=== PATIENT | female | born 1950 | race Caucasian/White ===

== ENCOUNTER 2017-11-03 18:03 | Emergency (ER) | payer OTHER, SELFPAY ==
[2017-11-03 18:23] VITALS: BP 159/75; PULSE 83; RESP 16; TEMP 36.9; O2SAT 98; BMI 28.2
--- NOTE | 2017-11-03 18:46 | ED.FALL ---
HPI - Fall <Garima Guerrero PA-C - Last Filed: 11/03/17 21:49> General Chief Complaint: Fall Stated Complaint: FELL ON BACKSIDE Time Seen by Provider: 11/03/17 18:10 Source: patient and family Mode of arrival: wheelchair Limitations: no limitations History of Present Illness HPI Narrative: This 66-year-old female was sitting in a hanging chair that fell down, and she fell onto her bottom. She states that she felt like she fell flat onto her tailbone or ???ischial tuberosity??? area. She denies any other injury such as head contusion or LOC. Her saw this today and states that her bottom was probably not more than 20 in off the ground. She fell onto a thin rub on a hardwood floor. She states that it was difficult for her to get up and she needed help. She states that she felt a lot of pain in the left gluteal area and this also radiated into the leg though she is not sure where or how far, but she had difficulty bearing weight due to the pain. She states this has improved a little bit since she initially got up. She denies any paresthesia or weakness in the legs. She states that she has been urinating normally. She states now she can feel some pain in the hip as well. She was recently diagnosed with osteopenia. Related Data Previous Rx's Medication Instructions Recorded rosuvastatin [Crestor] 10 mg PO QPM #30 tab 07/02/16 albuterol sulfate [Proventil HFA] 2 puff INH Q4-6HP PRN #1 inh 04/17/17 metoprolol succinate 50 mg PO QDAY #90 ter 04/17/17 pneumoc 13-nick conj-dip cr(PF) 0.5 ml IM X1 #1 ea 04/17/17 [Prevnar 13 (PF)] omeprazole 40 mg PO QDAYP PRN #90 cap 08/16/17 Allergies Allergy/AdvReac Type Severity Reaction Status Date / Time doxycycline [DOXYCYCLINE] Allergy Severe SWOLLEN LIP Verified 11/03/17 18:33 amoxicillin Allergy Unknown Verified 11/03/17 18:33 adhesive [ADHESIVE] AdvReac Mild BLISTERS Verified 11/03/17 18:33 Review of Systems <Garima Guerrero PA-C - Last Filed: 11/03/17 21:49> Review of Systems All systems reviewed & are unremarkable except as noted in HPI and below Exam <SCOTTIE Montoya Last Filed: 11/03/17 21:49> Narrative Exam Narrative: GENERAL APPEARANCE: Patient sitting comfortably, in no distress. PULMONARY: Lungs clear to auscultation bilaterally CV: Regular rhythm regular without murmur, normal S1 and S2, no S3 or S4 MUSCULOSKELETAL: No point tenderness over the lumbar spine or sacral spine. She points to the SI area on the left as pain source but no tenderness to palpation. She is slow to move from sit to stand but has normal trunk flexion. Lower extremity strength 5/5 bilateral hip flexors, knee extensors, foot plantar flexion. Negative modified straight leg raise bilaterally. She is able to ambulate a few steps bearing full weight with a cane for support NEUROLOGIC: Bilateral patellar and Achilles DTRs 2+ Initial Vital Signs Initial Vital Signs: Vital Signs Temperature 98.4 F 11/03/17 18:23 Pulse Rate 83 11/03/17 18:23 Respiratory Rate 16 11/03/17 18:23 Blood Pressure 159/75 H 11/03/17 18:23 Pulse Oximetry 98 11/03/17 18:23 <DO Phyllis Mercado Last Filed: 11/04/17 02:55> Initial Vital Signs Initial Vital Signs: Vital Signs Temperature 98.4 F 11/03/17 18:23 Pulse Rate 83 11/03/17 18:23 Respiratory Rate 16 11/03/17 18:23 Blood Pressure 159/75 H 11/03/17 18:23 Pulse Oximetry 98 11/03/17 18:23 Course <SCOTTIE Montoya Last Filed: 11/03/17 21:49> Orders Ordered: ED Orders 11/03/17 19:07 XR hip w pel if done LT 2V Stat XR lumbar spine 2-3V Stat Discontinued Medications Ibuprofen (Advil) 400 mg PO NOW ONE Stop: 11/03/17 19:08 Last Admin: 11/03/17 19:28 Dose: 400 mg Vital Signs - 8 hr 11/03/17 19:58 Pulse Rate 72 Respiratory Rate 15 Blood Pressure [Right Arm] 157/91 H Pulse Oximetry 98 <DO Phyllis Mercado Last Filed: 11/04/17 02:55> Orders Ordered: ED Orders 11/03/17 19:07 XR hip w pel if done LT 2V Stat XR lumbar spine 2-3V Stat Discontinued Medications Ibuprofen (Advil) 400 mg PO NOW ONE Stop: 11/03/17 19:08 Last Admin: 11/03/17 19:28 Dose: 400 mg Vital Signs - 8 hr 11/03/17 19:58 Pulse Rate 72 Respiratory Rate 15 Blood Pressure [Right Arm] 157/91 H Pulse Oximetry 98 MDM - Fall <Garima Guerrero PA-C - Last Filed: 11/03/17 21:49> Imaging Data Xrays hip, lumbar: Radiologist's impression: [address] [address] XRay Report Addendum Patient: Alma Whitfield MR#: [id number] : 1950 Acct:[id number] Age/Sex: 66 / F Date of Service: 11/03/17 Loc: ED Accession Number: [id number] Procedure: XR hip w pel if done LT 2V Ordering Provider: Garima Guerrero P.A-C ADDENDUM This report includes an Addendum and supersedes previous reports for this exam. PROCEDURE: XR HIP W PEL IF DONE LT 2V INDICATIONS: fall onto coccyx, L. hip and LE pain TECHNIQUE: AP pelvis with lateral view(s) of the left hip(s). COMPARISON: None. FINDINGS: Bones: No fractures or dislocations. Pelvic ring appears intact. No suspicious bony lesions. Soft tissues: The visualized bowel gas pattern is normal. No suspicious soft tissue calcifications. IMPRESSION: Mild symmetric hip joint osteoarthritis, no trauma found. Dictated by: Chuck Kruse M.D. on 11/03/2017 at 19:29 Approved by: Chuck Kruse M.D. on 11/03/2017 at 19:30 ADDENDUM: There is mild to moderate calcific bursitis appears present above the greater trochanteric tip on the left. This was not present on prior CT abdomen/pelvis from 2009. Dictated by: Chuck Kruse M.D. on 11/03/2017 at 19:37 Approved by: Chuck Kruse M.D. on 11/03/2017 at 19:42 Addendum Dictated By: Chuck Kruse M.D. Addendum Signed By: Addendum Cosigned By: DD/ TD/TT: 11/03/17 PROCEDURE: XR HIP W PEL IF DONE LT 2V INDICATIONS: fall onto coccyx, L. hip and LE pain TECHNIQUE: AP pelvis with lateral view(s) of the left hip(s). COMPARISON: None. FINDINGS: Bones: No fractures or dislocations. Pelvic ring appears intact. No suspicious bony lesions. Soft tissues: The visualized bowel gas pattern is normal. No suspicious soft tissue calcifications. IMPRESSION: Mild symmetric hip joint osteoarthritis, no trauma found. Dictated by: Chuck Kruse M.D. on 11/03/2017 at 19:29 Approved by: Chuck Kruse M.D. on 11/03/2017 at 19:30 View Report History Print [address] [address] XRay Report Signed Patient: Alma Whitfield MR#: [id number] : 1950 Acct:[id number] Age/Sex: 66 / F Date of Service: 11/03/17 Loc: ED Accession Number: [id number] Procedure: XR lumbar spine 2-3V Ordering Provider: Garima Guerrero P.A-C PROCEDURE: XR LUMBAR SPINE 2-3V INDICATIONS: fall, pain TECHNIQUE: 3 views of the lumbar spine were acquired. COMPARISON: [facility], CT, ABDOMEN/PELVIS WITH CONTRAST, 07/09/2009, 8:29. [facility], CR, XR HIP W PEL IF DONE LT 2V, 11/03/2017, 18:50. FINDINGS: Bones: 5 ulj-ojw-hoqstnf vertebrae are present. There is normal bony alignment. No vertebral body compression fractures. No suspicious bony lesions. Moderately severe mid and lower lumbosacral degenerative disc disease and facet osteoarthritis is present but without trauma. Soft tissues: Overlying bowel gas pattern is normal. No suspicious soft tissue calcifications. IMPRESSION: Moderately severe lumbosacral degenerative disc disease and facet osteoarthritis without trauma found. Dictated by: Chuck Kruse M.D. on 11/03/2017 at 19:30 Approved by: Chuck Kruse M.D. on 11/03/2017 at 19:36 Discharge Plan Departure Patient Disposition: Home, Self-Care Clinical Impression: Contusion of lower back and pelvis, initial encounter Discharge Date/Time: 11/03/17 20:12 Interventions: ED Discharge Assessment Last Done: 11/03/17 20:11 Instructions: DI for Low Back Pain Activity Restrictions/Additional Instructions: Use ice and heat and continue your topical medicines as needed. You may want to continue 400 mg of ibuprofen every 8 hr for the next couple of days or 1 Aleve every 12 hr. Aann-nus-aohkxnk lidocaine patches may also be helpful. Return as we talked about if any acutely worsening symptoms, otherwise you can walk hand start resuming gentle activity as you tolerate. You should plan to follow up with your PCP in about a week to reassess and see whether you might need further treatment such as physical therapy Prescriptions: No Action rosuvastatin [Crestor] 10 MG tablet 10 mg PO QPM Qty: 30 RF: 12 pneumoc 13-nick conj-dip cr(PF) [Prevnar 13 (PF)] 0.5 ML syringe 0.5 ml IM X1 Qty: 1 RF: 0 metoprolol succinate 50 MG tablet extended release 24 hr 50 mg PO QDAY Qty: 90 RF: 3 albuterol sulfate [Proventil HFA] 90 MCG/PUFF HFA aerosol inhaler 2 puff INH Q4-6HP PRNQty: 1 RF: 3 omeprazole 40 MG capsule,delayed release(DR/EC) 40 mg PO QDAYP PRNQty: 90 RF: 0 Referrals: Aundrea Villegas PA-C [Primary Care Provider] - <Karan Norton DO - Last Filed: 11/04/17 02:55> Cosign ED Attending Mp Attestation: I was immediately available in the department for consultation. Documentation has been reviewed. I agree with assessment and plan.
--- NOTE | 2017-11-03 19:07 | DI.RAD.S_ITS ---
PROCEDURE: XR HIP W PEL IF DONE LT 2V INDICATIONS: fall onto coccyx, L. hip and LE pain TECHNIQUE: AP pelvis with lateral view(s) of the left hip(s). COMPARISON: None. FINDINGS: Bones: No fractures or dislocations. Pelvic ring appears intact. No suspicious bony lesions. Soft tissues: The visualized bowel gas pattern is normal. No suspicious soft tissue calcifications. IMPRESSION: Mild symmetric hip joint osteoarthritis, no trauma found. Dictated by: Chuck Kruse M.D. on 11/03/2017 at 19:29 Approved by: Chuck Kruse M.D. on 11/03/2017 at 19:30
--- NOTE | 2017-11-03 19:07 | DI.RAD.S_ITS ---
PROCEDURE: XR LUMBAR SPINE 2-3V INDICATIONS: fall, pain TECHNIQUE: 3 views of the lumbar spine were acquired. COMPARISON: [facility], CT, ABDOMEN/PELVIS WITH CONTRAST, 07/09/2009, 8:29. [facility], CR, XR HIP W PEL IF DONE LT 2V, 11/03/2017, 18:50. FINDINGS: Bones: 5 usp-fac-kzjibhx vertebrae are present. There is normal bony alignment. No vertebral body compression fractures. No suspicious bony lesions. Moderately severe mid and lower lumbosacral degenerative disc disease and facet osteoarthritis is present but without trauma. Soft tissues: Overlying bowel gas pattern is normal. No suspicious soft tissue calcifications. IMPRESSION: Moderately severe lumbosacral degenerative disc disease and facet osteoarthritis without trauma found. Dictated by: Chuck Kruse M.D. on 11/03/2017 at 19:30 Approved by: Chuck Kruse M.D. on 11/03/2017 at 19:36
[2017-11-03] MEDS: IBUPROFEN 400 MG TABLET PO (19:28)
[2017-11-03 19:58] VITALS: BP 157/91; PULSE 72; RESP 15; O2SAT 98
== END 2017-11-03 20:12 | disposition home or self-care (01) ==
PROVIDERS: Emergency Provider Internal Medicine; Family Provider Physician Assistant; PCP Physician Assistant
DX: S30.0XXA Contusion of lower back and pelvis, initial encounter (principal); W19.XXXA Unspecified fall, initial encounter
CPT/HCPCS: 72100; 73502; 99283

== ENCOUNTER → 2018-03-11 09:06 | Outpatient (CLI) | payer OTHER, SELFPAY ==
--- NOTE | 2018-03-11 09:44 | DI.CT.S_ITS ---
PROCEDURE: CT CHEST WO CON INDICATIONS: History of adenocarcinoma of lung w/wedge resection x 2. Prior synchronous right upper lobe and right lower lobe VATS wedge lung resections were performed in September of 2014. Several stable 3-4 mm lung nodules have been previously documented. TECHNIQUE: Noncontrast 5 mm thick sections acquired from the pulmonary apices to the posterior costophrenic angles. 7 mm thick coronal and sagittal MIP reformats were then acquired. For radiation dose reduction, the following was used: automated exposure control, adjustment of mA and/or kV according to patient size. COMPARISON: Outside Facility, RG, CT THORAX W/O CONTRAST, 04/25/2017, 11:25. FINDINGS: Image quality: Excellent. Lungs and pleura: No acute air space opacities are present, and the areas of previously present sub-solid and small solid nodules identified within the upper lobes bilaterally are stable over time. These are seen on series 3, image 16 at the right upper lobe where a sub-solid radiodensity measures 4 mm as was previously the case and more superiorly on the left a sub-solid radiodensity could be seen on image 9 also stable over time. Finally, the previously reported solid nodule at the lateral left lung apex is much less well-visualized, and may be partially visualized on image 8, laterally, and smaller than on the prior outside CT from April 2017. There is expected postsurgical change of the VATS procedure lateral right lower lobe and medial left lung apex. No pleural effusions or pneumothorax. Central and peripheral airways are patent and normal in caliber. Mediastinum: Heart size is normal. No pericardial effusion. No mediastinal adenopathy by size criteria. Thoracic aorta and central pulmonary arteries are normal in size. Esophagus is normal in caliber. No hiatal hernia. Bones and chest wall: No suspicious bony lesions. No vertebral body compression fractures. No axillary or supraclavicular adenopathy by size criteria. Thyroid gland appears normal where well visualized. Abdomen: Visualized upper abdominal solid organs and bowel loops appear normal in the absence of contrast. IMPRESSION: 3 separate foci of both sub-solid and previously reported solid radiodensities at the upper lobes bilaterally identified during chest CT scanning at [facility] are stable over time or have diminished in conspicuity. Expected postsurgical change of prior VATS procedure right upper lobe near the apex and right lung base involving the lower lobe postero-laterally appear stable over time. No new pulmonary nodule has developed, no adenopathy or distant metastatic disease is found. Dictated by: Chuck Kruse M.D. on 03/11/2018 at 11:15 Approved by: Chuck Kruse M.D. on 03/11/2018 at 11:44
== END ==
PROVIDERS: Family Provider Physician Assistant; PCP Physician Assistant; Visit Provider Physician Assistant
DX: R91.8 Other nonspecific abnormal finding of lung field (principal); Z85.118 Personal history of other malignant neoplasm of bronchus and lung
CPT/HCPCS: 71250

== ENCOUNTER → 2018-04-08 07:30 | Outpatient (CLI) | payer OTHER, SELFPAY ==
[2018-04-08 08:34] LABS: Alanine Aminotransferase 48 IU/L (9-52); Albumin 4.2 g/dL (3.5-5.0); Albumin Globulin Ratio 1.6 (1.0-2.8); Alkaline Phosphatase 52 U/L (38-126); Aspartate Aminotransferase 28 IU/L (14-36); BUN Creatinine Ratio 22.2 (6-22); Bilirubin Total 1.3 mg/dL (0.2-1.3); Blood Urea Nitrogen 20 mg/dL (7-17); Calcium 9.1 mg/dL (8.4-10.2); Carbon Dioxide 27 mmol/L (22-32); Chloride 105 mmol/L (98-107); Cholesterol 239 mg/dL (140-199); Estimated Glomerular Filt Rate > 60.0 mL/min (>60); Globulin 2.6 g/dL (1.7-4.1); Glucose 88 mg/dL (80-110); HDL Cholesterol 52 mg/dL (40-60); HEMOLYSIS < 15 (0-50); LDL Cholesterol Calculated 161 mg/dL (<100); Potassium 4.7 mmol/L (3.4-5.1); Sodium 144 mmol/L (137-145); Total Protein 6.8 g/dL (6.3-8.2); Triglycerides 129 mg/dL (35-150)
[2018-04-08 08:45] LABS: Microalbumi Creatinin Ratio Ur 5.6 ug/mg CR (<30); Microalbumin Urine Random < 0.6 mg/dL (0-1.6)
== END ==
PROVIDERS: PCP Physician Assistant; Visit Provider Physician Assistant
DX: E78.2 Mixed hyperlipidemia (principal); I10 Essential (primary) hypertension
CPT/HCPCS: 36415; 80053; 80061; 82043; 82570

== ENCOUNTER → 2018-04-24 11:05 | Outpatient (CLI) | payer OTHER, SELFPAY ==
--- NOTE | 2018-04-24 11:06 | DI.MG.S_ITS ---
BILATERAL DIGITAL SCREENING MAMMOGRAM 3D/2D WITH CAD: 04/24/2018 CLINICAL: Routine screening. Comparison is made to exams dated: 02/15/2016 mammogram, 07/14/2009 mammogram, and 05/03/2008 mammogram - [facility]. The tissue of both breasts is predominantly fatty. Current study was also evaluated with a Computer Aided Detection (CAD) system. No significant masses, calcifications, or other findings are seen in either breast. There has been no significant interval change. IMPRESSION: NEGATIVE There is no mammographic evidence of malignancy. A 1 year screening mammogram is recommended. This exam was interpreted at Station ID: [id number]. NOTE: For mammograms, a report in lay terms will be sent to the patient. Approximately 15% of breast malignancies will not be visualized mammographically. In the management of a palpable breast mass, a negative mammogram must not discourage biopsy of a clinically suspicious lesion. Electronically Signed By: [place] ahuja/heidi:04/24/2018 16:20:54 letter sent: Normal Exam ACR BI-RADS Category 1: Negative [id number]
== END ==
PROVIDERS: Family Provider Physician Assistant; PCP Physician Assistant; Visit Provider Physician Assistant
DX: Z12.31 Encounter for screening mammogram for malignant neoplasm of breast (principal)
CPT/HCPCS: 77063; 77067

== ENCOUNTER → 2019-04-21 07:57 | Outpatient (CLI) | payer OTHER, SELFPAY ==
[2019-04-21 08:38] LABS: Alanine Aminotransferase 32 IU/L (<35); Albumin 4.4 g/dL (3.5-5.0); Albumin Globulin Ratio 1.6 (1.0-2.8); Alkaline Phosphatase 58 U/L (38-126); Aspartate Aminotransferase 27 IU/L (14-36); Bilirubin Total 1.3 mg/dL (0.2-1.3); Blood Urea Nitrogen 20 mg/dL (7-17); Calcium 9.9 mg/dL (8.4-10.2); Carbon Dioxide 24 mmol/L (22-32); Chloride 105 mmol/L (98-107); Cholesterol 249 mg/dL (140-199); Estimated Glomerular Filt Rate > 60.0 mL/min (>60); Globulin 2.7 g/dL (1.7-4.1); Glucose 108 mg/dL (80-110); HDL Cholesterol 48 mg/dL (40-60); HEMOLYSIS < 15 (0-50); LDL Cholesterol Calculated 159 mg/dL (<100); Potassium 4.5 mmol/L (3.4-5.1); Sodium 140 mmol/L (137-145); Total Protein 7.1 g/dL (6.3-8.2); Triglycerides 209 mg/dL (35-150)
[2019-04-21 09:28] LABS: Creatinine Urine Random 66.4 mg/dL
[2019-04-21 09:32] LABS: Microalbumin Urine Random < 0.6 mg/dL (0-1.6)
== END ==
PROVIDERS: PCP Physician Assistant; Visit Provider Physician Assistant
DX: E78.2 Mixed hyperlipidemia (principal); I10 Essential (primary) hypertension
CPT/HCPCS: 36415; 80053; 80061; 82043; 82570

== ENCOUNTER → 2019-11-19 09:09 | Outpatient (CLI) | payer OTHER, SELFPAY ==
[2019-11-20 19:56] LABS: COVID19 Sendout Not Detected (Not Detect)
== END ==
PROVIDERS: PCP Physician Assistant; Visit Provider Registered Nurse
DX: Z01.812 Encounter for preprocedural laboratory examination (principal)
CPT/HCPCS: 87635

== ENCOUNTER → 2020-08-15 08:11 | Outpatient (CLI) | payer OTHER, SELFPAY ==
[2020-08-15 08:58] LABS: Alanine Aminotransferase 48 IU/L (<35); Albumin 4.2 g/dL (3.5-5.0); Albumin Globulin Ratio 1.4 (1.0-2.8); Alkaline Phosphatase 51 U/L (38-126); Aspartate Aminotransferase 32 IU/L (14-36); BUN Creatinine Ratio 24.5 (6-22); Blood Urea Nitrogen 23 mg/dL (7-17); Calcium 9.3 mg/dL (8.4-10.2); Carbon Dioxide 29 mmol/L (22-32); Chloride 107 mmol/L (98-107); Cholesterol 256 mg/dL (140-199); Estimated Glomerular Filt Rate 59.2 mL/min (>60); Globulin 3.1 g/dL (1.7-4.1); Glucose 113 mg/dL (80-110); HDL Cholesterol 46 mg/dL (40-60); HEMOLYSIS < 15 (0-50); Hemoglobin A1C% w Est Avg Glu 5.7 % (4.0-6.0); LDL Cholesterol Calculated 170 mg/dL (<100); Potassium 4.2 mmol/L (3.4-5.1); Sodium 139 mmol/L (137-145); Total Protein 7.3 g/dL (6.3-8.2); Triglycerides 201 mg/dL (35-150)
[2020-08-15 09:23] LABS: Free T3, Triiodothyronine Free 3.44 pg/mL (2.77-5.27); Free T4, Direct Thyroxine 1.27 ng/dL (0.78-2.19)
[2020-08-15 09:37] LABS: Thyroid Stimulating Hormone 1.12 uIU/mL (0.47-4.68)
[2020-08-15 11:02] LABS: Creatinine Urine Random 124.2 mg/dL
[2020-08-15 11:03] LABS: Microalbumi Creatinin Ratio Ur 6.4 ug/mg CR (<30); Microalbumin Urine Random 0.8 mg/dL (0-1.6)
[2020-08-16 16:40] LABS: Hep C Virus Ab w/Reflex Quant NEGATIVE s/c (NEGATIVE)
[2020-08-16 18:51] LABS: Fecal Immunochemical Test Negative (Negative)
== END ==
PROVIDERS: PCP Nurse Practitioner; Referring Provider Nurse Practitioner; Visit Provider Nurse Practitioner
DX: E78.2 Mixed hyperlipidemia (principal); Z79.899 Other long term (current) drug therapy; I10 Essential (primary) hypertension; Z11.59 Encounter for screening for other viral diseases; Z91.89 Other specified personal risk factors, not elsewhere classified; Z12.11 Encounter for screening for malignant neoplasm of colon
CPT/HCPCS: 36415; 80053; 80061; 82043; 82274; 82570; 83036; 84439; 84443; 84481; 86803

== ENCOUNTER → 2020-12-14 07:29 | Outpatient (CLI) | payer OTHER, SELFPAY ==
[2020-12-14 08:44] LABS: Hemoglobin A1C% w Est Avg Glu 5.8 % (4.0-6.0)
[2020-12-14 08:56] LABS: Alanine Aminotransferase 43 IU/L (<35); Albumin Globulin Ratio 1.4 (1.0-2.8); Alkaline Phosphatase 55 U/L (38-126); Aspartate Aminotransferase 31 IU/L (14-36); BUN Creatinine Ratio 22.4 (6-22); Blood Urea Nitrogen 17 mg/dL (7-17); Calcium 9.6 mg/dL (8.4-10.2); Carbon Dioxide 26 mmol/L (22-32); Chloride 108 mmol/L (98-107); Cholesterol 204 mg/dL (140-199); Estimated Glomerular Filt Rate > 60.0 mL/min (>60); Globulin 2.9 g/dL (1.7-4.1); Glucose 109 mg/dL (80-110); HDL Cholesterol 44 mg/dL (40-60); HEMOLYSIS < 15 (0-50); LDL Cholesterol Calculated 118 mg/dL (<100); Potassium 4.5 mmol/L (3.4-5.1); Sodium 140 mmol/L (137-145); Total Protein 6.9 g/dL (6.3-8.2); Triglycerides 209 mg/dL (35-150)
== END ==
PROVIDERS: PCP Nurse Practitioner; Referring Provider Nurse Practitioner; Visit Provider Nurse Practitioner
DX: E78.2 Mixed hyperlipidemia (principal); R73.01 Impaired fasting glucose; Z78.9 Other specified health status; Z79.899 Other long term (current) drug therapy
CPT/HCPCS: 36415; 80053; 80061; 83036

== ENCOUNTER → 2021-06-27 08:25 | Outpatient (CLI) | payer OTHER, SELFPAY ==
[2021-06-27 11:14] LABS: Alanine Aminotransferase 59 IU/L (<35); Albumin 4.1 g/dL (3.5-5.0); Albumin Globulin Ratio 1.5 (1.0-2.8); Alkaline Phosphatase 52 U/L (38-126); Aspartate Aminotransferase 37 IU/L (14-36); BUN Creatinine Ratio 19.8 (6-22); Bilirubin Total 1.1 mg/dL (0.2-1.3); Blood Urea Nitrogen 18 mg/dL (7-17); Calcium 9.8 mg/dL (8.4-10.2); Carbon Dioxide 27 mmol/L (22-32); Chloride 107 mmol/L (98-107); Cholesterol 212 mg/dL (140-199); Estimated Glomerular Filt Rate > 60.0 mL/min (>60); Globulin 2.7 g/dL (1.7-4.1); Glucose 105 mg/dL (80-110); HDL Cholesterol 58 mg/dL (40-60); HEMOLYSIS < 15 (0-50); LDL Cholesterol Calculated 130 mg/dL (<100); Potassium 4.7 mmol/L (3.4-5.1); Sodium 141 mmol/L (137-145); Total Protein 6.8 g/dL (6.3-8.2); Triglycerides 119 mg/dL (35-150)
[2021-06-27 11:18] LABS: Microalbumin Urine Random 0.8 mg/dL (0-1.6)
[2021-06-27 11:19] LABS: Creatinine Urine Random 39.2 mg/dL; Microalbumi Creatinin Ratio Ur 20.4 ug/mg CR (<30)
[2021-06-27 11:25] LABS: Free T3, Triiodothyronine Free 3.31 pg/mL (2.77-5.27); Free T4, Direct Thyroxine 1.15 ng/dL (0.78-2.19)
[2021-06-27 11:38] LABS: Thyroid Stimulating Hormone 1.36 uIU/mL (0.47-4.68)
== END ==
PROVIDERS: PCP Nurse Practitioner; Referring Provider Nurse Practitioner; Visit Provider Nurse Practitioner
DX: E78.2 Mixed hyperlipidemia (principal); I10 Essential (primary) hypertension; R73.01 Impaired fasting glucose; Z79.899 Other long term (current) drug therapy
CPT/HCPCS: 36415; 80053; 80061; 82043; 82570; 84439; 84443; 84481

== ENCOUNTER → 2021-08-10 12:49 | Outpatient (CLI) | payer OTHER, SELFPAY ==
[2021-08-10 13:23] LABS: Alanine Aminotransferase 48 IU/L (<35); Albumin 4.4 g/dL (3.5-5.0); Albumin Globulin Ratio 1.4 (1.0-2.8); Alkaline Phosphatase 56 U/L (38-126); Aspartate Aminotransferase 35 IU/L (14-36); Bilirubin Total 0.9 mg/dL (0.2-1.3); Bilirubin Unconjugated 0.9 mg/dL (0.0-1.1); Globulin 3.2 g/dL (1.7-4.1); HEMOLYSIS < 15 (0-50); Total Protein 7.6 g/dL (6.3-8.2)
== END ==
PROVIDERS: PCP Nurse Practitioner; Referring Provider Nurse Practitioner; Visit Provider Nurse Practitioner
DX: R79.89 Other specified abnormal findings of blood chemistry (principal)
CPT/HCPCS: 36415; 80076

== ENCOUNTER → 2022-09-06 09:34 | Outpatient (CLI) | payer OTHER, SELFPAY ==
[2022-09-07 16:43] LABS: Fecal Immunochemical Test Negative (Negative)
== END ==
PROVIDERS: PCP Nurse Practitioner; Referring Provider Nurse Practitioner; Visit Provider Nurse Practitioner
DX: Z12.11 Encounter for screening for malignant neoplasm of colon (principal)
CPT/HCPCS: 82274

== ENCOUNTER → 2022-10-25 07:12 | Outpatient (CLI) | payer OTHER, SELFPAY ==
[2022-10-25 08:21] LABS: Alanine Aminotransferase 46 IU/L (<35); Albumin 4.1 g/dL (3.5-5.0); Albumin Globulin Ratio 1.4 (1.0-2.8); Alkaline Phosphatase 59 U/L (38-126); Aspartate Aminotransferase 34 IU/L (14-36); BUN Creatinine Ratio 18.6 (6-22); Bilirubin Total 1.2 mg/dL (0.2-1.3); Blood Urea Nitrogen 16 mg/dL (7-17); Calcium 9.3 mg/dL (8.4-10.2); Carbon Dioxide 28 mmol/L (22-32); Chloride 105 mmol/L (98-107); Cholesterol 253 mg/dL (140-199); Estimated Glomerular Filt Rate > 60 mL/min (>60); Glucose 105 mg/dL (80-110); HDL Cholesterol 46 mg/dL (40-60); HEMOLYSIS < 15 (0-50); LDL Cholesterol Calculated 161 mg/dL (<100); Potassium 4.6 mmol/L (3.4-5.1); Sodium 139 mmol/L (137-145); Total Protein 7.1 g/dL (6.3-8.2); Triglycerides 232 mg/dL (35-150)
[2022-10-25 08:41] LABS: Free T3, Triiodothyronine Free 4.05 pg/mL (2.77-5.27); Free T4, Direct Thyroxine 1.06 ng/dL (0.78-2.19)
[2022-10-25 08:55] LABS: Thyroid Stimulating Hormone 1.72 uIU/mL (0.47-4.68)
== END ==
PROVIDERS: PCP Nurse Practitioner; Referring Provider Nurse Practitioner; Visit Provider Nurse Practitioner
DX: E78.2 Mixed hyperlipidemia (principal); R73.01 Impaired fasting glucose; I10 Essential (primary) hypertension; R79.89 Other specified abnormal findings of blood chemistry; Z79.899 Other long term (current) drug therapy
CPT/HCPCS: 36415; 80053; 80061; 84439; 84443; 84481

== ENCOUNTER → 2022-12-05 09:12 | Outpatient (CLI) | payer OTHER, SELFPAY ==
--- NOTE | 2022-12-05 09:13 | DI.US.S_ITS ---
PROCEDURE: US ABDOMEN LIMITED INDICATIONS: PERSISTENLY ELEVATED LIVER FUNCTION TESTS TECHNIQUE: Real-time scanning was performed of the abdominal, with image documentation. COMPARISON: None. FINDINGS: Liver: Measures 14.8 cm. Increased in echogenicity. Gallbladder: Nondilated. No stones or sludge. Normal gallbladder wall thickness. No pericholecystic fluid. Negative sonographic Person's sign. Biliary ducts: Intrahepatic bile ducts are non-dilated. Extrahepatic bile duct caliber measures 6 mm. Normal is 6-7 mm or less in diameter, or 10 mm or less post-cholecystectomy. Pancreas: Visualized portions of the pancreatic head are sonographically normal. Body and tail are not well seen. Miscellaneous: No free abdominal fluid. IMPRESSION: 1. Increased hepatic echogenicity most consistent with hepatic steatosis. Other forms of hepatocellular disease could have similar appearance. 2. No acute cholecystitis. No gallstones. Dictated by: Darrel Barreto M.D. on 12/05/2022 at 13:32 Approved by: Darrel Barreto M.D. on 12/05/2022 at 13:34
== END ==
PROVIDERS: PCP Nurse Practitioner; Referring Provider Nurse Practitioner; Visit Provider Nurse Practitioner
DX: R79.89 Other specified abnormal findings of blood chemistry (principal)
CPT/HCPCS: 76705

== ENCOUNTER → 2023-11-27 08:32 | Outpatient (CLI) | payer OTHER, SELFPAY ==
[2023-11-27 10:53] LABS: Alanine Aminotransferase 47 IU/L (<35); Albumin 4.3 g/dL (3.5-5.0); Albumin Globulin Ratio 1.4 (1.0-2.8); Alkaline Phosphatase 60 U/L (38-126); Aspartate Aminotransferase 30 IU/L (14-36); BUN Creatinine Ratio 19.8 (6-22); Blood Urea Nitrogen 17 mg/dL (7-17); Calcium 9.4 mg/dL (8.4-10.2); Carbon Dioxide 25 mmol/L (22-32); Chloride 111 mmol/L (98-107); Cholesterol 233 mg/dL (140-199); Estimated Glomerular Filt Rate > 60 mL/min (>60); Glucose 112 mg/dL (80-110); HDL Cholesterol 56 mg/dL (40-60); HEMOLYSIS < 15 (0-50); LDL Cholesterol Calculated 140 mg/dL (<100); Potassium 4.3 mmol/L (3.4-5.1); Sodium 139 mmol/L (137-145); Total Protein 7.3 g/dL (6.3-8.2); Triglycerides 187 mg/dL (35-150)
[2023-11-27 11:11] LABS: Free T3, Triiodothyronine Free 3.78 pg/mL (2.77-5.27); Free T4, Direct Thyroxine 1.05 ng/dL (0.78-2.19)
[2023-11-27 17:43] LABS: Creatinine Urine Random 25.47 mg/dL
[2023-11-27 17:47] LABS: Microalbumin Urine Random 0.8 mg/dL (0-1.6)
== END ==
PROVIDERS: PCP Nurse Practitioner; Referring Provider Nurse Practitioner; Visit Provider Nurse Practitioner
DX: Z00.00 Encounter for general adult medical examination without abnormal findings (principal); R73.01 Impaired fasting glucose; I10 Essential (primary) hypertension; E78.2 Mixed hyperlipidemia; F41.8 Other specified anxiety disorders; Z79.899 Other long term (current) drug therapy
CPT/HCPCS: 36415; 80053; 80061; 82043; 82570; 83036; 84439; 84443; 84481

== ENCOUNTER → 2024-01-30 06:57 | Outpatient (CLI) | payer OTHER, SELFPAY ==
--- NOTE | 2024-01-30 06:58 | DI.ECHO.S_ITS ---
[facility]---------+ [facility] : : [address] : : [place] : : [address] : : Phone: [phone] Echocardiogram Report + + :Name: LEO EDWARD Study Date: 01/30/2024 Height: 66 in : :[facility] ReadingLocation: Weight: 212 lb : : Gender: Female BSA: 2.1 m2 : :: 1950 Age: 73 yrs BP: 166/83 mmHg: :Reason For Study: ESSENTIAL HYPERTENSION : :Ordering Physician: TERRELL, : :MIKIE Performed By: José Luis George : :Referring: MIKIE TEJADA : + + Interpretation Summary 1. Left ventricular contractility is normal. Estimate ejection fraction is greater than 60% with no segmental wall motion abnormalities. No LVH. Grade 1 diastolic dysfunction. 2. Right ventricle contractility is normal. 3. All cardiac chambers are of normal size. 4. Mild mitral annular calcification without significant insufficiency nor stenosis. 5. No other significant valvular abnormalities are appreciated. 6. No obvious intracardiac shunts. 7. No obvious discrete masses nor thrombi. 8. No hemodynamically significant pericardial effusion. 9. Low right-sided filling pressures Conclusion: Normal biventricular systolic function with no significant valvular abnormalities. Procedure: A two-dimensional transthoracic echocardiogram with color flow and Doppler was performed. The study quality was technically adequate. There is no prior echocardiogram noted for this patient. The patient was in sinus rhythm with heart rates between 63-72 bpm during the exam. Left Ventricle: The left ventricle is normal in size. There is normal left ventricular wall thickness. The ejection fraction is estimated to be 65-70%. Right Ventricle: The right ventricle is normal size. The right ventricular systolic function is normal. Atria: The left atrial size is normal. Right atrial size is normal. The interatrial septum grossly appears intact with no obvious evidence for an atrial septal defect. Mitral Valve: The mitral valve is normal. MAC. There is no mitral valve stenosis. There is no mitral regurgitation noted. Aortic Valve: The aortic valve is trileaflet. There is no aortic valve stenosis. No aortic regurgitation is present. Tricuspid Valve: The tricuspid valve is normal. There is no tricuspid stenosis. There is a trace or physiologic amount of tricuspid regurgitation. Pulmonic Valve: The pulmonic valve is not well visualized. There is no pulmonic valvular stenosis. There is a trace or physiologic amount of pulmonic regurgitation. Great Vessels: The aortic root is normal size. The dimensions of the ascending aorta are normal. The IVC is of normal diameter and collapses greater than 50% with a sniff. This suggests a low right atrial pressure of 3 mm Hg. Pericardium/ Pleura There is no pericardial effusion. There is no pleural effusion. MMode/2D Measurements & Calculations LVIDd: 4.6 cm LVOT diam: 2.0 cm LVIDs: 2.9 cm Ao root diam: 3.1 cm FS: 38.1 % asc Aorta Diam: 3.2 cm IVSd: 0.91 cm LVPWd: 1.0 cm LV avalos. diameter/BSA (cm/m^2): 2.3 LV sys. diameter/BSA (cm/m^2): 1.4 LA A2 area: 19.9 cm2 RA area: 7.5 cm2 LA A4 area: 18.7 cm2 IVC diam: 1.6 cm LA length (vol): 5.9 cm LA vol: 53.8 ml LA vol index: 26.2 ml/m2 RVD1 (basal): 3.6 cm RVD2 (mid): 3.6 cm TAPSE: 2.7 cm Doppler Measurements & Calculations Ao V2 max: 152.9 cm/sec LVOT Max Valetnino: 115.6 cm/sec Ao V2 mean: 95.9 cm/sec LV V1 max P.3 mmHg Ao max P.4 mmHg LV V1 VTI: 25.9 cm Ao mean P.3 mmHg HANS(I,D): 2.4 cm2 Ao V2 VTI: 31.8 cm HANS(V,D): 2.3 cm2 sev ratio: 0.82 HANS indexed to BSA (cm^2/m^2): 1.2 MV E max valentino: 79.1 cm/sec TR max valentino: 241.7 cm/sec MV A max valentino: 92.7 cm/sec TR max P.4 mmHg MV E/A: 0.85 PA V2 max: 107.3 cm/sec Med Peak E' Valentino: 5.7 cm/sec PA V2 mean: 82.9 cm/sec E/E' med: 13.9 PA mean P.9 mmHg Lat Peak E' Valentino: 4.7 cm/sec PA pr(Accel): 37.9 mmHg E/E' lat: 16.7 E/e' average: 15.3 MV dec time: 0.25 sec SV(LVOT): 77.6 ml Reading Physician:
--- NOTE | 2024-01-30 07:35 | EKG_ITS ---
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
== END ==
PROVIDERS: PCP Nurse Practitioner; Referring Provider Nurse Practitioner; Visit Provider Nurse Practitioner
DX: I10 Essential (primary) hypertension (principal)
CPT/HCPCS: 93005; 93306

== ENCOUNTER 2025-04-14 08:21 | Day surgery (SDC) | payer OTHER, SELFPAY ==
[2025-04-14 08:55] VITALS: BP 136/74; PULSE 68; RESP 16; TEMP 36.1; O2SAT 98
[2025-04-14] MEDS: LACTATED RINGERS 1,000 ML 42 ML IV (09:04)
--- NOTE | 2025-04-14 09:17 | P.HP_ITS ---
History of Present Illness
--- NOTE | 2025-04-14 09:17 | PM.HP.IH.1 ---
History of Present Illness History of Present Illness Date Patient Seen: 04/14/25 [facility] Medical History (Updated 11/30/24 @ 09:33 by Ruchi Mcneil DO) Intertriginous candidiasis Family history of heart disease At high risk for stroke At high risk for cardiovascular disease Depression with anxiety Elevated LFTs Statin intolerance Elevated fasting blood sugar Snoring Basal cell carcinoma (BCC) of right upper arm (05/23/17) Bacterial infection of gastrointestinal tract (2010) Non-small cell lung cancer (NSCLC) (09/2014) GERD (gastroesophageal reflux disease) HTN (hypertension) Hyperlipidemia Osteopenia (2016) Surgical History History of basal cell carcinoma (BCC) excision (07/10/17) History of basal cell carcinoma (BCC) excision (05/26/17) History of excision of hemangioma (1968) History of open reduction and internal fixation (ORIF) procedure (1989) History of tonsillectomy (1956) S/P rotator cuff repair (2008) History of lobectomy of lung (09/2014) Family History Brother Heart attack Dementia due to another medical condition Brother Atrial fibrillation Heart attack Father Heart disease Heart attack Grandfather Ruptured appendix Grandmother No problems noted. Mother Asthma Grandfather Liver disease Grandmother No problems noted. Brother Murder Social History (Updated 11/03/17 @ 19:34 by Garima Guerrero PA-C) Smoking Status: Never smoker second hand exposure: No alcohol intake: current substance use type: marijuana Meds Home Medications and Allergies Home Medications ?Medication ?Instructions ?Recorded ?Confirmed ?Type omega-3 fatty acids 1,000 mg 1,000 mg PO BID 12/29/20 04/14/25 History capsule (Fish Oil Concentrate) ResMed AirCurve 10 BIPAP 05/09/21 04/14/25 History ketoconazole 2 % topical cream 1 applic topical BID PRN 11/30/24 04/14/25 Rx dermatitis #30 grams nystatin 100,000 unit/gram topical 1 applic topical .COMPLEX rash #30 12/03/24 04/14/25 Rx powder grams metoprolol succinate 50 mg 50 mg PO DAILY #90 tabs 01/21/25 04/14/25 Rx tablet,extended release 24 hr peg 3350-electrolytes 236 240 ml PO Q10M #4,000 mL 03/15/25 04/14/25 Rx gram-22.74 gram-6.74 gram-5.86 gram solution (Golytely) Allergies Allergy/AdvReac Type Severity Reaction Status Date / Time doxycycline (DOXYCYCLINE) Allergy Severe SWOLLEN LIP Verified 04/14/25 08:53 amoxicillin Allergy Mild swollen lip Verified 04/14/25 08:53 ezetimibe (From Zetia) AdvReac Intermediate memory Verified 04/14/25 08:53 problems Xiumukl-ORU-QgP Reductase AdvReac Intermediate impaired Verified 04/14/25 08:53 Inhibitor (Zvglkyg-Kbc-Ekc memory, Reductase Inhibitor) muscle pain adhesive (ADHESIVE) AdvReac Mild BLISTERS Verified 04/14/25 08:53 Exam Vital Signs (past 8 hours): - 04/14/25 08:55 Temperature 97 F L Pulse Rate 68 Respiratory Rate 16 Blood Pressure 136/74 Pulse Oximetry 98 Oxygen Delivery Method Room Air Oxygen Delivery Method Room Air Assessment & Plan Time-Based Coding :: [TOTAL MINUTES] spent with patient and on the chart (including review of chart, obtaining history, exam, reviewing outside data, placing orders, documenting exam and treatment plan, and counseling patient) on [DATE]. [employer] Document charge(s): No
--- NOTE | 2025-04-14 09:19 | P.OP.COLON_ITS ---
Operative Date/Time/Diagnoses
--- NOTE | 2025-04-14 09:19 | PM.OP.COLON ---
Operative Date/Time/Diagnoses Date of procedure: 04/07/25 Time of procedure: 10:07 Pre-op diagnosis: Screening Post-op diagnosis: same Procedure & Clinicians Study performed: Colonoscopy Same procedure(s) as scheduled: Yes Indications: Need for screening colonoscopy last 10 years ago Surgeon: Kathya Bhandari Anesthesia Type: Other Procedure Notes Procedure in detail: After informed consent was obtained the patient was placed in left lateral decubitus position. The video colonoscope was introduced the rectum slowly advanced cecum. Preparation was good. On slow withdrawal mucosa was carefully examined. The scope was removed. The patient tolerated procedure well. Blood loss none Complications none Sedation mac Findings 1. Extensive sigmoid diverticulosis otherwise negative colonoscopy to cecum Patient should have follow-up colonoscopy in 7 years years Estimated Blood Loss: 0 Complications: none
[2025-04-14 10:08] VITALS: BP 139/86; PULSE 67; RESP 12; TEMP 36.1; O2SAT 97
[2025-04-14 10:10] VITALS: BP 128/66; PULSE 64; RESP 20; O2SAT 97
[2025-04-14 10:23] VITALS: BP 124/71; PULSE 64; RESP 20; O2SAT 96
== END 2025-04-14 10:40 | disposition home or self-care (01) ==
PROVIDERS: PCP Family Medicine; Referring Provider Family Medicine; Visit Provider Internal Medicine Gastroenterology
PROC: 0DJD8ZZ Inspection of Lower Intestinal Tract, Via Natural or Artificial Opening Endoscopic (ICD-10-PCS; CPT 45378; principal; 2025-04-14 09:30)
DX: Z12.11 Encounter for screening for malignant neoplasm of colon (principal); K57.30 Diverticulosis of large intestine without perforation or abscess without bleeding
CPT/HCPCS: G0121; J2704; J7120